=== PATIENT | male | born 1945 | race Caucasian/White ===

== ENCOUNTER 2021-06-11 13:44 | Emergency (ER) | payer MEDICARE, BC, SELFPAY ==
[2021-06-11 14:19] VITALS: BP 152/86; PULSE 76; RESP 16; TEMP 36.4; O2SAT 96; BMI 32.4
[2021-06-11 14:54] VITALS: BP 166/72; PULSE 59; RESP 18; O2SAT 95
--- NOTE | 2021-06-11 15:13 | USCV_ITS ---
Bacilio Flynn Age: 75 Gender: M : 1945 Exam Date: 06/11/2021 15:31 Ordering Phys: Dennis Romero MD Technologist: Unique Salas [place] [facility] [place]: BLE PAIN, S/P BILAT GSV ABLATION HISTORY: Lower extremity pain. PROCEDURES: Venous duplex imaging was performed in bilateral lower extremities. Serial compression, augmentation maneuvers, and spectral Doppler flow evaluation were performed. FINDINGS: Normal 2-D Doppler and augmentation and compressibility throughout the lower extremity venous structures. Additional imaging through the proximal calf veins also reveals no thrombus. Bilateral non-compressible GSV seen from Groin to Knee. Patient is s/p bilateral GSV ablation CONCLUSIONS No DVT bilateral lower extremities. Chronic bilateral superficial thrombophlebitis GSV's. Dr. Bina Downing DO (Electronically Signed) Final Date: 11 June 2021 16:23 S
--- NOTE | 2021-06-11 16:11 | W.ED.GENADLT ---
HPI - General Adult General: Chief complaint: General Medical Stated complaint: BLOOD CLOT COMPLICATIONS IN L FOOT/PAIN Time Seen by Provider: 06/11/21 14:53 History of Present Illness: HPI narrative: Patient is a 75-year-old male with a history of recent superficial vein sclerosizing procedure presented to the emergency room for evaluation of left foot swelling x1 day. Patient is concerned that he may have had a blood clot and wanted to be checked out in the emergency room. Patient denies any shortness breath, chest pain, palpitation, lightheadedness. Patient denies any leg swelling, erythema, fever/chills, drainage, or pain with walking on the feet. Patient denies any ankle pain, recent trauma or fall or, or difficulty bearing weight on the left foot. Onset:1 day ago Duration:1 day Location:home Severity:mild Review of Systems Narrative: Constitutional: No fever, no chills. HEENT: No vision changes CV: No chest pain, no palpitations PULM: no cough, no dyspnea. GI: No abdominal pain, no N/V/D. : No dysuria MSKEL: +l foot sweling SKIN: No new rashes, no lesions. NEURO: No headache, no focal weakness. HEME: No visible bruises PSYCH: Normal mood Physical Exam Narrative: EXAM NARRATIVE: Head: Atraumatic Eyes: PERRL, conjunctiva without injection ENT: Mucous membrane moist NECK: Supple, ROM intact LUNGS: LCTAB, no crackles/rhonchi CV: RRR ABDOMEN: Soft, nontender in all quadrants EXTREMITY: Normal ROM, no visible swelling of the left foot, no ankle swelling bilaterally, no Homans' sign, hyperpigmented skin to below the knee, no visible fluctuance, warmth, erythema in the lower extremities bilaterally, 2+ DP/PT pulses bilaterally, neurological exam intact in the lower extremity bilaterally SKIN: No rash or erythema NEURO: Awake and alert, no focal motor deficits PSYCH: Normal mood and affect Course Vital Signs: Vital signs: Vital Signs Temperature 97.6 F 06/11/21 14:19 Pulse Rate 59 L 06/11/21 14:54 Respiratory Rate 18 06/11/21 14:54 Blood Pressure 166/72 06/11/21 14:54 Pulse Oximetry 95 06/11/21 14:54 MDM - General Adult MDM Narrative: Medical decision making narrative: 75-year-old male presents emergency room for evaluation of left foot swelling. On exam, there is no focal signs of swelling or infection. Patient is hemodynamically stable, neurovascular exam of the lower extremities intact. Ultrasound not showing signs of DVT. Ultrasound visualization of the DP and PT pulses intact. No suspicion for acute arterial occlusion, necrotizing soft tissue infection, DVT, other infections of lower extremity. Disposition: Discharge. Patient counseled regarding diagnostic impression, treatment plan. Patient given ED strict return precautions to return for continuation, worsening, or development of new symptoms. Instructed to f/u w/ PCP regarding symptoms today. Patient verbalized understanding. Lab Data: Labs: Lab Results 06/11/21 16:00 WBC 5.5 10^3/uL 10^3/ uL (4.0-10.0) RBC 4.41 10^6/uL 10^6 /uL (4.1-5.3) Hgb 14.1 g/dL g/dL (11.7-16.6) Hct 42.6 % % (42.0-52.0) MCV 96.6 fl H fl (80-94) MCH 32.0 pg pg (28.0-34.0) MCHC 33.1 g/dL g/dL (30.0-36.0) RDW 13.0 % % (12.1-15.1) Plt Count 151 10^3/cmm 10^3 /cmm (130-400) MPV 9.7 fL fL (7.4-10.4) Neut % (Auto) 59.0 % % Lymph % (Auto) 27.0 % % [place] % (Auto) 8.0 % % Eos % (Auto) 4.7 % % Baso % (Auto) 1.1 % % Neut # (Auto) 3.23 10^3/uL 10^3 /uL (1.8-7.7) Lymph # (Auto) 1.5 10^3/uL 10^3/ uL (0.8-4.8) [place] # (Auto) 0.4 10^3/uL 10^3/ uL (0.2-0.9) Eos # (Auto) 0.3 10^3/uL 10^3/ uL (0.0-0.8) Baso # (Auto) 0.1 10^3/uL 10^3/ uL (0.0-0.1) Nucleated RBC % (a uto) 0 % % Nucleated RBCs # 0.0 /100WBC /100W BC Imaging Data^: Other Imaging: Radiologist's impression: [facility] [place], [place] [address]Racaumzszc ReportSigned Patient: Bacilio Flynn AUnit #: [id number]: 1945cct#:[id number]/Sex: 75 / MADM Date: 06/11/21Loc: ERRoom/Bed:Attending Dr: Ordering Provider/Ordering MD: Dennis Romero MD Date of Service: 06/11/21 Procedure(s): [place] [id number] Accession Number(s): [id number] Report Number: [id number] Bacilio Flynn Age: 75 Gender: M : 1945 Exam Date: 06/11/2021 15:31 Ordering Phys: Dennis Romero MD Technologist: Unique Salas [place] [facility] [place]: BLE PAIN, S/P BILAT GSV ABLATION HISTORY: Lower extremity pain. PROCEDURES: Venous duplex imaging was performed in bilateral lower extremities. Serial compression, augmentation maneuvers, and spectral Doppler flow evaluation were performed. FINDINGS: Normal 2-D Doppler and augmentation and compressibility throughout the lower extremity venous structures. Additional imaging through the proximal calf veins also reveals no thrombus. Bilateral non-compressible GSV seen from Groin to Knee. Patient is s/p bilateral GSV ablation CONCLUSIONS No DVT bilateral lower extremities. Chronic bilateral superficial thrombophlebitis GSV's. Dr. Bina Downing DO (Electronically Signed) Final Date: 11 June 2021 16:23 S Discharge Plan Discharge Patient Disposition: Home Clinical Impression: Foot swelling Condition: Stable Discharge Orders: Discharge ED (Routine); Ordered 06/11/21 Ordered By: Dennis Romero Referrals: Rona Cabral FNP [Primary Care Provider] - Discharge Diet: Advance as tolerated Discharge Activity: Resume usual activity Patient Instructions: Swollen Joint (ED) Activity Restrictions/Additional Instructions: Follow-up with your primary care provider for further evaluation of your right knee. Come back to the emergency you have new or concerning complaints. Coding Level of Care Code ED Clinical Applications Specialist for Evelin Haskins
[2021-06-11 16:14] LABS: Basophils # 0.1 10^3/uL (0.0-0.1); Basophils % 1.1 %; Eosinophils # 0.3 10^3/uL (0.0-0.8); Eosinophils % 4.7 %; Hematocrit 42.6 % (42.0-52.0); Hemoglobin 14.1 g/dL (11.7-16.6); Lymphocytes # 1.5 10^3/uL (0.8-4.8); Mean Corpuscular HGB Conc 33.1 g/dL (30.0-36.0); Mean Corpuscular Volume 96.6 fl (80-94); Mean Platelet Volume 9.7 fL (7.4-10.4); Monocytes # 0.4 10^3/uL (0.2-0.9); Neutrophils # 3.23 10^3/uL (1.8-7.7); Nucleated Red Blood Cells % 0 %; Platelet Count 151 10^3/cmm (130-400); Red Blood Count 4.41 10^6/uL (4.1-5.3); White Blood Count 5.5 10^3/uL (4.0-10.0)
[2021-06-11 16:54] LABS: Anion Gap 13.3 (5-19); Blood Urea Nitrogen 14 mg/dL (8-23); Calcium 8.4 mg/dL (8.5-10.5); Carbon Dioxide 31 mmol/L (22-29); Chloride 98 mmol/L (98-107); Glucose 99 mg/dL (65-115); Osmolality Calculated 287 mOsm/kg (285-295); Potassium 4.3 mmol/L (3.5-5.1); Sodium 138 mmol/L (136-145)
== END 2021-06-11 16:52 | disposition home or self-care (01) ==
PROVIDERS: Emergency Provider Emergency Medicine; PCP Nurse Practitioner Family
DX: M79.89 Other specified soft tissue disorders (principal)
CPT/HCPCS: 80048; 85025; 93970; 99282

== ENCOUNTER 2022-10-20 17:28 | Emergency (ER) | payer MEDICARE, BC, SELFPAY ==
[2022-10-20] VITALS (12 sets, daily range): BP systolic 155–198; BP diastolic 81–101; PULSE 64–104; RESP 13–26; TEMP 36.1; O2SAT 78–99; BMI 27.8
--- NOTE | 2022-10-20 17:36 | ECG_ITS ---
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 Measurements Intervals [place] Rate: 74 P: 0 VA: 0 QRS: -73 QRSD: 156 T: 28 QT: 452 QTc: 502 Interpretive Statements ATRIAL FLUTTER RIGHT BUNDLE BRANCH BLOCK [120+ ms QRS DURATION, UPRIGHT V1, 40+ ms S IN I/aVL/V4/V5/V6] LEFT ANTERIOR FASCICULAR BLOCK [QRS AXIS <= -45, QR IN I, RS IN II] INFERIOR MYOCARDIAL INFARCTION , OF INDETERMINATE AGE [40+ ms Q WAVE AND/OR ST/T ABNORMALITY IN II/aVF] Compared to ECG 06/23/2019 19:39:36 Left anterior fascicular block now present Sinus rhythm no longer present Myocardial infarct finding still present Electronically Signed On 10-20-2022 22:51:23 CDT by Khalif Macedo M.D. [id number]
--- NOTE | 2022-10-20 18:28 | XRR_ITS ---
PROCEDURE INFORMATION: Exam: XR Chest Exam date and time: 10/20/2022 6:40 PM Age: 77 years old Clinical indication: Other: Arrythmia TECHNIQUE: Imaging protocol: Radiologic exam of the chest. Views: 1 view. COMPARISON: CR XR chest 1V [id number] 06/23/2019 8:09 PM FINDINGS: Lungs: Scattered calcified granuloma are unchanged. No consolidation. Pleural spaces: Unremarkable. No pleural effusion. No pneumothorax. Heart/Mediastinum: Stable heart size. Bones/joints: Stable bones. XR/XR chest 1V portable [id number] IMPRESSION: No acute findings.
--- NOTE | 2022-10-20 18:28 | CTR_ITS ---
PROCEDURE INFORMATION: Exam: CT Head Without Contrast Exam date and time: 10/20/2022 6:52 PM Age: 77 years old Clinical indication: Dizziness and other: Fall; Additional info: Dizziness, fall, TECHNIQUE: Imaging protocol: Computed tomography of the head without contrast. Radiation optimization: All CT scans at this facility use at least one of these dose optimization techniques: automated exposure control; mA and/or kV adjustment per patient size (includes targeted exams where dose is matched to clinical indication); or iterative reconstruction. REPORTING DATA: Count of CT and Cardiac NM exams in prior 12 months: This patient has received 0 known CTs and 0 known cardiac nuclear medicine studies in the 12 months prior to the current study. COMPARISON: CT head wo con* [id number] 06/23/2019 8:20 PM RADIATION DOSE METRICS: Total DLP (mGy-cm): 1162.38 FINDINGS: Brain: There is a newly apparent region of hypodensity in the left anterior and inferior temporal lobe. No associated mass effect or midline shift. New hypodensity is also seen in the right basal ganglia/caudate nucleus head for example on series 4, image 17 with punctate foci of hyperdensity suspicious for petechial hemorrhage. No midline shift. Mild involutional changes of the brain are stable. New lytic changes in the right frontal calvarium for example on series 5, image 40 measuring 2.4 cm with underlying possible extra-axial density. 5 mm extra-axial hypodense right cerebral convexity collection greatest in the frontal region. Cerebral ventricles: No ventriculomegaly. Paranasal sinuses: Visualized sinuses are unremarkable. No fluid levels. Mastoid air cells: Visualized mastoid air cells are well aerated. Bones/joints: No acute fracture. Soft tissues: Unremarkable. CT/CT head wo con* [id number] IMPRESSION: 1. New region of hypodensity in the left anterior and inferior temporal lobe. Additional region of hypodensity in the right basal ganglia/caudate nucleus head which appears to have petechial hemorrhage. Differential diagnosis is regions of subacute infarction or possibly edema related to brain lesion such as metastasis. No significant mass effect is seen. No midline shift. Recommend further characterization with MRI brain with and without contrast material. 2. Additional new lytic lesion right frontal lobe possibly with associated soft tissue component favors metastasis. 3. Additional 5 mm right frontal convexity extra-axial hypodense collection is suspicious for a subacute subdural hematoma.
--- NOTE | 2022-10-20 18:30 | ED_ITS ---
HPI - Dizziness General: Chief Complaint: Dizziness Stated Complaint: Fell and head bused in the wall, dizziness Time Seen by Provider: 10/20/22 18:21 History of Present Illness: HPI Narrative: Patient presents to the ER with complaints of dizziness and falling. Patient has had multiple episodes of dizziness and falling over the past month. Patient seen his PCP recently had an EKG and they said he may be in A-fib and change his medicine around. However they did not place him on any anticoagulation. Patient has struck his head on multiple occasions during these falls. MD elicited complaint: dizziness Onset (ago): week(s) (4 to 8 weeks ago) Timing: sudden onset Severity: moderate Description: off-balance and difficulty walking History of similar symptoms: Yes Exacerbating factors: movement/ambulation Relieving factors: nothing Associated symptoms: Reports no associated symptoms; Denies chest pain, chills, headache(s), nausea, palpitations or vomiting Associated neuro symptoms: Reports no associated symptoms; Deny numbness in extremities Review of Systems General: Reports: 10 or more systems reviewed and unremarkable except in HPI and below Const: Denies: fever(s) or chills Eyes: Denies: change in vision ENMT: Denies: throat pain Card: Reports: irregular heart rhythm; Denies: chest pain or palpitations Resp: Denies: dyspnea, productive cough or non-productive cough GI: Reports: diarrhea; Denies: abdominal pain, nausea or vomiting : Denies: flank pain or difficulty urinating Musc: Denies: neck pain or back pain Skin/Breast: Denies: rash or pruritus Neuro: Denies: headache(s), numbness in extremities or weakness in extremities Psych: Denies: anxiety or depression Endo: Denies: polyuria, polydipsia or tired all the time Physical Exam Const: COMMON NORMALS: no acute distress, average body habitus, patient oriented x3, no limitations, healthy appearing, alert and well nourished HENMT: COMMON NORMALS: normocephalic, atraumatic, hearing grossly normal bilaterally, external ears normal, Normal external nose present and moist oral mucous membranes HEAD & SCALP: normocephalic and atraumatic NOSE: Normal external nose present EXTERNAL EAR: Yes external ears normal Eye: COMMON NORMALS: Equal, round and reactive pupils present, EOMs intact bilaterally, conjunctivae normal and no scleral icterus CONJUNCTIVA: Yes conjunctivae normal PUPIL: Yes Equal, round and reactive pupils present Chest: COMMONS NORMALS: normal inspection of the chest and normal palpation of entire chest wall Resp: COMMON NORMALS: normal respiratory effort, No retractions, No use of accessory muscles and clear to auscultation bilaterally AUSCULTATION: clear to auscultation bilaterally Cardio: COMMON NORMALS: regular rate RATE: regular rate RHYTHM: abnormal rhythm irregularly irregular GI: COMMON NORMALS: Normal to inspection, nondistended, normoactive bowel sounds present, Soft to palpation, non-tender, No hepatosplenomegaly present and no masses PALPATION: Yes Soft to palpation and Yes No hepatosplenomegaly present : COMMON NORMALS: Yes no CVA tenderness BLADDER/KIDNEY EXAM: Yes no CVA tenderness Back/Pelvis: COMMON NORMALS: no CVA tenderness and thoracic and lumbar spine normal to inspection Neuro: COMMON NORMALS: patient oriented x3, CN's II-XII intact bilaterally, moves all extremities, no focal motor deficits and no sensory deficits noted SENSORIUM/ORIENTATION: Yes alert Psych: COMMON NORMALS: mental status grossly normal, Normal thought process present, cooperative, normal affect and speech normal SPEECH: Yes normal speech THOUGHT PROCESS: Normal thought process present Course 2 Vital Signs: Vital signs: Vital Signs Temperature 96.9 F L 10/20/22 17:31 Pulse Rate 69 10/20/22 19:05 Respiratory Rate 17 10/20/22 19:05 Blood Pressure 180/101 10/20/22 19:05 Pulse Oximetry 98 10/20/22 18:45 Oxygen Delivery Me thod 10/20/22 17:31 MDM - Dizziness Medical Decision Making Patient presents to the ER with complaints of sudden onset dizziness and falls, multiple times in the last several months. Patient has no complaints at this time and only came in because his daughter made him come. Patient's daughter said this is happening more frequent and getting worse with the last fall possibly a couple days ago. Upon further history and physical exam as well as lab work and imaging, it was found that patient has a subacute 5 mm subdural hematoma as well as a possible petechial hemorrhage in his basal ganglia, and possible multiple lytic lesions in his frontal lobe. These findings were discussed with patient and daughter. Patient has no history of cancers other than skin cancers. Mayra Arora was called Dr. Mandi neurosurgeon recommended ER to ER transfer, Dr. Fili Adamson, ER doctor excepted patient in transfer. Differential Diagnosis Likely orthostatic hypotension; Unlikely benign paroxysmal positional vertigo, vertebral basilar insufficiency, cerebrovascular accident, acute vestibular neuronitis or transient cerebral ischemia Lab Data 10/20/22 18:35 10/20/22 18:35 Radiology Impressions Chest X-Ray 10/20/22 18:28 IMPRESSION: No acute findings. Head CT 10/20/22 18:28 IMPRESSION: 1. New region of hypodensity in the left anterior and inferior temporal lobe. Additional region of hypodensity in the right basal ganglia/caudate nucleus head which appears to have petechial hemorrhage. Differential diagnosis is regions of subacute infarction or possibly edema related to brain lesion such as metastasis. No significant mass effect is seen. No midline shift. Recommend further characterization with MRI brain with and without contrast material. 2. Additional new lytic lesion right frontal lobe possibly with associated soft tissue component favors metastasis. 3. Additional 5 mm right frontal convexity extra-axial hypodense collection is suspicious for a subacute subdural hematoma. ADDENDUM: 10/20/221925 THIS REPORT CONTAINS FINDINGS THAT MAY BE CRITICAL TO PATIENT CARE. The findings were verbally communicated via telephone conference with Evan Grimm at 7:25 PM CDT on 10/20/2022. The findings were acknowledged and understood. Laboratory Results WBC 10.6 10^3/uL (4.0-10.0) H 10/20/22 18:35 RBC 4.34 10^6/uL (4.1-5.3) 10/20/22 18:35 Hgb 11.8 g/dL (11.7-16.6) 10/20/22 18:35 Hct 37.5 % (42.0-52.0) L 10/20/22 18:35 MCV 86.4 fl (80-94) 10/20/22 18:35 MCH 27.2 pg (28.0-34.0) L 10/20/22 18:35 MCHC 31.5 g/dL (30.0-36.0) 10/20/22 18:35 RDW 13.7 % (12.1-15.1) 10/20/22 18:35 Plt Count 265 10^3/cmm (130-400) 10/20/22 18:35 MPV 9.8 fL (7.4-10.4) 10/20/22 18:35 Neut % (Auto) 79.4 % 10/20/22 18:35 Lymph % (Auto) 12.4 % 10/20/22 18:35 [place] % (Auto) 6.1 % 10/20/22 18:35 Eos % (Auto) 0.9 % 10/20/22 18:35 Baso % (Auto) 0.6 % 10/20/22 18:35 Neut # (Auto) 8.41 10^3/uL (1.8-7.7) H 10/20/22 18:35 Lymph # (Auto) 1.3 10^3/uL (0.8-4.8) 10/20/22 18:35 [place] # (Auto) 0.6 10^3/uL (0.2-0.9) 10/20/22 18:35 Eos # (Auto) 0.1 10^3/uL (0.0-0.8) 10/20/22 18:35 Baso # (Auto) 0.1 10^3/uL (0.0-0.1) 10/20/22 18:35 Nucleated RBC % (auto) 0 % 10/20/22 18:35 Nucleated RBCs # 0.0 /100WBC 10/20/22 18:35 PT 16.10 SECONDS (12.1-14.9) H 10/20/22 18:35 INR 1.25 (0.8-1.2) H 10/20/22 18:35 Sodium 131 mmol/L (136-145) L 10/20/22 18:35 Potassium 3.9 mmol/L (3.5-5.1) 10/20/22 18:35 Chloride 92 mmol/L (98-107) L 10/20/22 18:35 Carbon Dioxide 27 mmol/L (22-29) 10/20/22 18:35 Anion Gap 15.9 (5-19) 10/20/22 18:35 BUN 16 mg/dL (8-23) 10/20/22 18:35 Creatinine 1.0 mg/dL (0.7-1.2) 10/20/22 18:35 GFR Calculation Not Reportable 10/20/22 18:35 Glucose 94 mg/dL (65-115) 10/20/22 18:35 Calculated Osmolality 273 mOsm/kg (285-295) L 10/20/22 18:35 Calcium 8.7 mg/dL (8.5-10.5) 10/20/22 18:35 Total Bilirubin 0.6 mg/dL (0.15-1.2) 10/20/22 18:35 AST 37 U/L (0-40) 10/20/22 18:35 ALT 46 U/L (0-41) H 10/20/22 18:35 Alkaline Phosphatase 131 U/L (40-130) H 10/20/22 18:35 Troponin T Baseline 30 ng/L (0-15) H 10/20/22 18:35 Total Protein 7.2 g/dL (6.6-8.7) 10/20/22 18:35 Albumin 3.7 g/dL (3.5-5.2) 10/20/22 18:35 Globulin 3.5 g/dL (1.3-4.6) 10/20/22 18:35 TSH 2.16 uIU/mL (0.27-4.20) 10/20/22 18:35 Discharge Plan Discharge Patient Disposition: Transfer to ED Clinical Impression: Subdural hematoma, Closed head injury with petechial brain hemorrhage, Abnormal computed tomography of head, Multiple falls, Vertigo Condition: Stable Referrals: Misha,ZOË Rea [Primary Care Provider] - Coding Level of Care Code ED Automatic Furnace Operator for Evelin Haskins
[2022-10-20 19:02] LABS: Basophils # 0.1 10^3/uL (0.0-0.1); Basophils % 0.6 %; Eosinophils # 0.1 10^3/uL (0.0-0.8); Eosinophils % 0.9 %; Hematocrit 37.5 % (42.0-52.0); Hemoglobin 11.8 g/dL (11.7-16.6); Lymphocytes # 1.3 10^3/uL (0.8-4.8); Lymphocytes % 12.4 %; Mean Corpuscular HGB Conc 31.5 g/dL (30.0-36.0); Mean Corpuscular Hemoglobin 27.2 pg (28.0-34.0); Mean Corpuscular Volume 86.4 fl (80-94); Mean Platelet Volume 9.8 fL (7.4-10.4); Monocytes # 0.6 10^3/uL (0.2-0.9); Monocytes % 6.1 %; Neutrophils # 8.41 10^3/uL (1.8-7.7); Neutrophils % 79.4 %; Nucleated Red Blood Cells % 0 %; Platelet Count 265 10^3/cmm (130-400); Red Blood Count 4.34 10^6/uL (4.1-5.3); Red Cell Distribution Width 13.7 % (12.1-15.1); White Blood Count 10.6 10^3/uL (4.0-10.0)
[2022-10-20 19:10] LABS: INR 1.25 (0.8-1.2)
[2022-10-20 19:25] LABS: Troponin(5th) Baseline 30 ng/L (0-15)
[2022-10-20 19:31] LABS: Alanine Aminotransferase 46 U/L (0-41); Albumin Level 3.7 g/dL (3.5-5.2); Alkaline Phosphatase 131 U/L (40-130); Anion Gap 15.9 (5-19); Aspartate Amino Transferase 37 U/L (0-40); Blood Urea Nitrogen 16 mg/dL (8-23); Calcium 8.7 mg/dL (8.5-10.5); Carbon Dioxide 27 mmol/L (22-29); Chloride 92 mmol/L (98-107); Globulin 3.5 g/dL (1.3-4.6); Glucose 94 mg/dL (65-115); Osmolality Calculated 273 mOsm/kg (285-295); Potassium 3.9 mmol/L (3.5-5.1); Sodium 131 mmol/L (136-145); Thyroid Stimulating Hormone 2.16 uIU/mL (0.27-4.20); Total Bilirubin 0.6 mg/dL (0.15-1.2); Total Protein 7.2 g/dL (6.6-8.7)
[2022-10-20 20:59] LABS: Troponin 5 2HR 26.74 ng/L (0-15)
[2022-10-20 21:00] LABS: Troponin 5 2HR Delta -3.26 ABS# (0-10)
== END 2022-10-20 22:41 ==
PROVIDERS: Emergency Provider Emergency Medicine; PCP Nurse Practitioner Family
DX: S06.5XAA Traumatic subdural hemorrhage with loss of consciousness status unknown, initial encounter (principal); R23.3 Spontaneous ecchymoses; S09.8XXA Other specified injuries of head, initial encounter; R42 Dizziness and giddiness; R29.6 Repeated falls; R93.0 Abnormal findings on diagnostic imaging of skull and head, not elsewhere classified; W19.XXXA Unspecified fall, initial encounter
CPT/HCPCS: 36415; 70450; 71045; 80053; 84443; 84484; 85025; 85610; 93005; 99285

== ENCOUNTER 2022-11-11 09:46 | Oncology outpatient (recurring) (ONCR) | payer MEDICARE, BC, SELFPAY ==
--- NOTE | 2022-11-06 14:49 | N.ONRAD NP_ITS ---
Radiation Oncology Consultation Patient Name: Bacilio Flynn Date of : 1945 Date of Service: 11/06/2022 Attending Physician: Donavon Noguera M.D. Maicol Flynn was seen in consultation this morning for consideration of palliative cranial radiotherapy in the management of metastatic esophageal cancer. He was evaluated at the [facility]'s Emergency Department following a fall that resulted in loss of consciousness. A CT of the head obtained on October 20, 2022 identified a hypodensity in the left amee-inferior temporal lobe, a lytic right frontal calvarial lesion measuring 2.4 cm, and a 5 mm right frontal lobe convexity suspicious for subacute subdural hematoma. He was transferred to [facility] in [place], [place]. An MRI of the head revealed multiple metastatic lesions including a 4 mm cerebellar lesion, a 3 mm left inferior temporal lesion, a 1.1 cm posterior temporal mass, a 7.5 mm right basal ganglia lesion, a 3 mm left occipital lesion, a 1.5 mm left lateral ventricular lesion, a 2.5 left precentral gyrus lesion, a 1 mm right frontal lobe lesion, a 5 mm right convexity subdural hematoma. A thoracoabdominopelvic CT scan ordered on 2022 described esophageal mass measuring 6.3 cm x 6 cm x 4.8 cm 1.9 cm hypodense lesion in the splenic body, and a density in the left adrenal gland. An esophagogastroduodenoscopy performed on October 24, 2022 reported a subepithelial mass or possible external compression causing luminal narrowing 31 cm to 38 cm from the central incisors. A fine-needle aspiration the periesophageal mass diagnosed a poorly-differentiated adenocarcinoma. HER2 and MMR IHC were attempted but there is insufficient cellularity for interpretation. The patient was evaluated for palliative cranial radiotherapy. I reviewed The National Comprehensive Cancer Network Guidelines for extensive brain metastases and the role of hypothalamic- avoidance whole brain radiotherapy and memantine, cranial radiotherapy with or without memantine, and stereotactic radiosurgery for the management of cranial metastases. In consideration of the patient's metastatic disease burden, I anticipate a short-course of radiotherapy. I anticipate a 1-week course of treatment. The potential toxicities of cranial radiotherapy were reviewed. The patient has verbalized understanding would like to proceed as recommended. Signed by: Donavon Noguera 11/06/2022 2:48:47 PM
== END 2022-11-16 23:59 | disposition home or self-care (01) ==
PROVIDERS: PCP Family Medicine; Visit Provider Internal Medicine Medical Oncology
DX: C79.31 Secondary malignant neoplasm of brain; Z87.891 Personal history of nicotine dependence; Z79.52 Long term (current) use of systemic steroids; C15.5 Malignant neoplasm of lower third of esophagus
CPT/HCPCS: 99205

== ENCOUNTER 2022-11-25 09:27 | Outpatient (CLI) | payer MEDICARE, BC, SELFPAY ==
--- NOTE | 2022-11-25 09:38 | CT_ITS ---
WS: [id number] CT HEAD TECHNIQUE: Noncontrast CT of the head obtained from the skullbase to the vertex. CLINICAL INFORMATION: SECONDARY MALIGNANT NEOPLASM OF BRAIN COMPARISON: Outside MRI October 21, 2022 DLP: 1150.[address] scans at [facility] use at least one of these dose optimization techniques: automated e xposure control; mA and/or kV adjustment per patient size (includes targeted exams where dose is matc hed to clinical indication); or iterative reconstruction. FINDINGS: Again seen are intracranial metastasis with surrounding edema involving the LEFT anterior temporal lo be, RIGHT frontal lobe adjacent to the frontal horn, and additional smaller enhancing lesion seen on the prior MRI in the LEFT anterior cerebellum. Areas of edema are similar to previous. Metastatic les ions today measure 2.3 x 1.7 cm in the LEFT anterior temporal lobe progressed compared to the prior M RI. RIGHT frontal lesion also is progressed measuring 1.1 x 1.3 CM. Mild mass effect on the LEFT temp oral horn and RIGHT anterior frontal horn. No obstructive hydrocephalus. 4th ventricle is patent. Transcalvarial metastasis involving the RIGHT frontal scalp with large soft tissue component appears progressed. Soft tissue scalp component measures 7.1 x 1.2 x 1.4 cm AP by transverse by craniocaudal. This results in transcalvarial involvement of the RIGHT frontal calvarium with erosive changes in th e calvarium which appears progressed. Soft tissue scalp component presumably represents metastasis si gnificantly progressed compared to previous. Recommend clinical correlation. Associated involvement of the underlying dura. Associated dural thickening overlying the RIGHT fronta l lobe. Dural thickening measures approximately 5 mm. Some this may represent residual subdural hemat robel that was previously described. Moderate small vessel changes. Moderate parenchymal volume loss. Paranasal sinuses and mastoid air ce lls well aerated. CT/CT head wo con* [id number] IMPRESSION: 1. Interparenchymal metastasis as described above progressed in the LEFT tempo ral and RIGHT frontal lobes. 2. No obstructive hydrocephalus or significant midline shift. 3. Transcalvarial metastasis involving the RIGHT frontal scalp with involvemen t of the underlying calvarium and dura. Scalp soft tissue component presumably metastasis has significantly progressed. 4. Stable appearing dural thickening underlying the RIGHT frontal calvarial me tastasis with stable hematoma/dural thickening measuring 5 mm. 5. Moderate small vessel changes with moderate parenchymal volume loss. 6. Contrast not administered. Recommend follow-up MRI without and with gadolin ium for better anatomic detail.
== END 2022-11-25 09:28 | disposition home or self-care (01) ==
LOC: RAD 09:29
PROVIDERS: PCP Family Medicine; Visit Provider Neurological Surgery
DX: C79.31 Secondary malignant neoplasm of brain (principal)
CPT/HCPCS: 70450

== ENCOUNTER 2022-12-04 10:27 | Oncology outpatient (recurring) (ONCR) | payer MEDICARE, BC, SELFPAY ==
--- NOTE | 2022-11-26 | CT_ITS ---
Radiation Therapy Planning CT images; total exam DLP: 361.82 mGy-cm MTDD
--- NOTE | 2022-12-04 10:32 | N.ONRD TS_ITS ---
Radiation OncologyTreatment Summary Patient Name: Bacilio Flynn Date of : 1945 Date of Service: 12/04/2022 Attending Physician: Donavon Noguera M.D. Bacilio Flynn has completed cranial radiotherapy for the management of metastatic esophageal cancer. He was evaluated at the [facility]'s Emergency Department following a fall that resulted in loss of consciousness. A CT of the head obtained on October 20, 2022 identified a hypodensity in the left amee-inferior temporal lobe, a lytic right frontal calvarial lesion measuring 2.4 cm, and a 5 mm right frontal lobe convexity suspicious for subacute subdural hematoma. He was transferred to [facility] in [place], [place]. An MRI of the head revealed multiple metastatic lesions including a 4 mm cerebellar lesion, a 3 mm left inferior temporal lesion, a 1.1 cm posterior temporal mass, a 7.5 mm right basal ganglia lesion, a 3 mm left occipital lesion, a 1.5 mm left lateral ventricular lesion, a 2.5 left precentral gyrus lesion, a 1 mm right frontal lobe lesion, a 5 mm right convexity subdural hematoma. A thoracoabdominopelvic CT scan ordered on 2022 described esophageal mass measuring 6.3 cm x 6 cm x 4.8 cm 1.9 cm hypodense lesion in the splenic body, and a density in the left adrenal gland. An esophagogastroduodenoscopy performed on October 24, 2022 reported a subepithelial mass or possible external compression causing luminal narrowing 31 cm to 38 cm from the central incisors. A fine-needle aspiration the periesophageal mass diagnosed a poorly-differentiated adenocarcinoma. HER-2 and MMR IHC were attempted but there is insufficient cellularity for interpretation. Daily radiotherapy was administered between the dates November 27, 2022 through December 03, 2022. A prescribed dose of 20 Gy was delivered in 5 fractions encompassing 7 elapsed days. The cranial fossa was treated utilizing a 3-dimensional conformal radiotherapy plan with an opposed lateral portal field design and a half-beam treatment technique. The left lateral port employed a gantry angle of 90??? and a collimator angle of 220???. The field size measured 11 cm x11 cm within X-direction and 18 cm x 0 cm within the Y-direction. The measured SSD was 92.2 cm with the field delivering 210 monitor units. The right lateral field utilized a 270??? gantry angle with a collimator angle of 140???. The field size measured 11 cm x 11 cm within the X-direction and 18 cm x 0 cm within the Y-direction. The SSD measured 91.9 cm with the port administering 217 monitor units. All treatments were performed with the [employer] linear accelerator and an isocentric technique. The dose was calculated by Anisotropic Analytic Algorithm. Photon energies of 15 MV were prescribed with the plan normalized to deliver 100% of the prescription dose to 100% of the planning target volume. Signed by: Donavon Noguera 12/04/2022 10:31:41 AM
--- NOTE | 2022-12-04 10:47 | ONCRAD TMN_ITS ---
Radiation Oncology Treatment Management Note Patient Name: Bacilio Flynn Date of : 1945 Date of Service: 12/04/2022 Attending Physician: Donavon Noguera M.D. Bacilio Flynn has completed cranial radiotherapy for the management of metastatic esophageal cancer. He was evaluated at the [facility]'s Emergency Department following a fall that resulted in loss of consciousness. A CT of the head obtained on October 20, 2022 identified a hypodensity in the left amee-inferior temporal lobe, a lytic right frontal calvarial lesion measuring 2.4 cm, and a 5 mm right frontal lobe convexity suspicious for subacute subdural hematoma. He was transferred to [facility] in [place], [place]. An MRI of the head revealed multiple metastatic lesions including a 4 mm cerebellar lesion, a 3 mm left inferior temporal lesion, a 1.1 cm posterior temporal mass, a 7.5 mm right basal ganglia lesion, a 3 mm left occipital lesion, a 1.5 mm left lateral ventricular lesion, a 2.5 left precentral gyrus lesion, a 1 mm right frontal lobe lesion, a 5 mm right convexity subdural hematoma. A thoracoabdominopelvic CT scan ordered on 2022 described esophageal mass measuring 6.3 cm x 6 cm x 4.8 cm 1.9 cm hypodense lesion in the splenic body, and a density in the left adrenal gland. An esophagogastroduodenoscopy performed on October 24, 2022 reported a subepithelial mass or possible external compression causing luminal narrowing 31 cm to 38 cm from the central incisors. A fine-needle aspiration the periesophageal mass diagnosed a poorly-differentiated adenocarcinoma. HER-2 and MMR IHC were attempted but there is insufficient cellularity for interpretation. The patient has received 20 Gy of a prescribed 20 Gy with a 3-dimensional conformal radiotherapy plan utilizing a half-beam block treatment technique with opposed lateral portal flanagan. Upon review of systems, he denied new neurological symptoms. On physical examination, the patient weighed 192 lbs. His temperature was 97.8 ???F and the blood pressure was 101/66 mmHg. His pulse was 176 bpm and the respiratory rate was 16. Cranial nerves were intact. Cranial radiotherapy completed today. Signed by: Donavon Noguera 12/04/2022 10:46:39 AM
== END 2022-12-17 23:59 | disposition home or self-care (01) ==
PROVIDERS: PCP Family Medicine; Visit Provider Radiology Radiation Oncology
DX: Z51.0 Encounter for antineoplastic radiation therapy (principal); C15.5 Malignant neoplasm of lower third of esophagus; C79.31 Secondary malignant neoplasm of brain; Z79.899 Other long term (current) drug therapy
CPT/HCPCS: 77280; 77290; 77295; 77300; 77334; 77336; 77412; 99024

== ENCOUNTER 2022-12-22 15:21 | Observation (INO) | payer MEDICARE, BC, SELFPAY ==
[2022-12-22] VITALS (36 sets, daily range): BP systolic 67–127; BP diastolic 47–80; PULSE 114–141; RESP 15–24; TEMP 36.6–37.7; O2SAT 80–97; BMI 24.4
--- NOTE | 2022-12-22 15:23 | W.ED.GENADLT ---
HPI - General Adult General: Chief complaint: Urogenital-Male Stated complaint: unable to urinate Time Seen by Provider: 12/22/22 15:23 Source: patient Mode of arrival: ambulatory History of Present Illness: 77-year-old male presents emergency room unable to urinate. He has been agitated. He has a known history of esophageal cancer with multiple mets to the brain and other distant organs. He is tachycardic on arrival. He is very agitated he was given half milligram Ativan and 1/2 mg morphine. Hospice states they tried to place catheter but unable to do so. He was referred to the emergency room. He did receive palliative radiation therapy per oncology notes. Review of Systems General: Reports: ROS unobtainable due to medical condition and ROS unobtainable due to mental status PFS ED PFSH: Medical History Anxiety and depression Benign prostatic hyperplasia History of carotid stenosis Hyperlipidemia Hypertension Malignant neoplasm of lower third of esophagus Peripheral neuropathy Secondary malignant neoplasm of brain Surgical History History of appendectomy History of carpal tunnel surgery of left wrist History of endoscopy (10/24/22) EGD with endoscopic ultrasound and FNA biopsy of esophageal mass History of surgery on lower extremity Vascular surgery S/P coronary artery stent placement Family History Mother Dementia Brother Cancer Other CAD (coronary artery disease) Hyperlipidemia Hypertension Denies family history of Diabetes Clotting disorder Psychiatric illness Chronic kidney disease (CKD) Suicide Anesthesia complication Bleeding disorder Lung disease Stroke Social History Smoking and tobacco status: former smoker Quit status (tobacco): has quit using tobacco Former quit date comment: Smoked x 50+, then vaped off and on Alcohol intake: current Alcohol intake frequency: 3 or more drinks per day Physical Exam HENMT: COMMON NORMALS: normocephalic, atraumatic and hearing grossly normal bilaterally HEAD & SCALP: normocephalic and atraumatic Resp: COMMON NORMALS: normal respiratory effort, No retractions, No use of accessory muscles and clear to auscultation bilaterally AUSCULTATION: clear to auscultation bilaterally Cardio: COMMON NORMALS: regular rate, regular rhythm and No murmurs present (Cardio) RATE: regular rate RHYTHM: regular rhythm GI: COMMON NORMALS: No hepatosplenomegaly present AUSCULTATION: Yes normoactive bowel sounds PALPATION: Yes Tenderness to palpation present (GI) (Suprapubic fullness, resolved after placement of Earl), No Guarding due to palpation present (GI) and Yes No hepatosplenomegaly present Extremity: COMMON NORMALS: normal to inspection, capillary refill normal, no clubbing, cyanosis or edema, no calf tenderness and no pedal edema Skin: COMMON NORMALS: no rashes or lesions noted GENERAL SKIN EXAM: no rashes or lesions noted Course Vital Signs: Vital signs: Vital Signs Temperature 98.5 F 12/23/22 08:00 Pulse Rate 118 H 12/23/22 10:08 Respiratory Rate 20 H 12/23/22 10:08 Blood Pressure 82/43 12/23/22 08:00 Pulse Oximetry 82 L 12/23/22 08:00 Oxygen Delivery Me thod Nasal Cannula 12/23/22 10:08 Oxygen Flow Rate 2 12/23/22 10:08 MDM - General Adult Medical Decision Making Patient extremely agitated on arrival given morphine and Ativan to relieve his anxiety and sedate him. We are able to get the Earl placed he drained out 1500 mL. Family is unable to manage him at home hospice is working on respite placement in residential. They report that he is rapidly declined in the last several days. We will leave Earl in place, outpatient in bed discussed Dr. Rubio continue medications as needed for comfort. He did have hypotension after the Ativan and morphine. Discussed with the family at this point we will not intervene and did improve after some time. Given he is on hospice they are more concerned with just comfort cares at this point. Have discussed with his hospice service they are aware that he is being placed outpatient in bed this evening. Medical Records I reviewed the patient's medical records. Lab Data I reviewed the patient's lab results. 12/22/22 16:20 12/22/22 16:20 Laboratory Results WBC 19.8 10^3/uL (4.0-10.0) H 12/22/22 16:20 RBC 4.68 10^6/uL (4.1-5.3) 12/22/22 16:20 Hgb 12.8 g/dL (11.7-16.6) 12/22/22 16:20 Hct 39.6 % (42.0-52.0) L 12/22/22 16:20 MCV 84.6 fl (80-94) 12/22/22 16:20 MCH 27.4 pg (28.0-34.0) L 12/22/22 16:20 MCHC 32.3 g/dL (30.0-36.0) 12/22/22 16:20 RDW 20.9 % (12.1-15.1) H 12/22/22 16:20 Plt Count 112 10^3/cmm (130-400) L 12/22/22 16:20 MPV 9.2 fL (7.4-10.4) 12/22/22 16:20 Neut % (Auto) 85.9 % 12/22/22 16:20 Lymph % (Auto) 8.0 % 12/22/22 16:20 Refugio % (Auto) 3.3 % 12/22/22 16:20 Eos % (Auto) 0.4 % 12/22/22 16:20 Baso % (Auto) 0.2 % 12/22/22 16:20 Neut # (Auto) 17.04 10^3/uL (1.8-7.7) H 12/22/22 16:20 Lymph # (Auto) 1.6 10^3/uL (0.8-4.8) 12/22/22 16:20 Refugio # (Auto) 0.7 10^3/uL (0.2-0.9) 12/22/22 16:20 Eos # (Auto) 0.1 10^3/uL (0.0-0.8) 12/22/22 16:20 Baso # (Auto) 0.0 10^3/uL (0.0-0.1) 12/22/22 16:20 Nucleated RBC % (auto) 0 % 12/22/22 16:20 Nucleated RBCs # 0.0 /100WBC 12/22/22 16:20 Sodium 134 mmol/L (136-145) L 12/22/22 16:20 Potassium 4.3 mmol/L (3.5-5.1) 12/22/22 16:20 Chloride 94 mmol/L (98-107) L 12/22/22 16:20 Carbon Dioxide 30 mmol/L (22-29) H 12/22/22 16:20 Anion Gap 14.3 (5-19) 12/22/22 16:20 BUN 18 mg/dL (8-23) 12/22/22 16:20 Creatinine 0.7 mg/dL (0.7-1.2) 12/22/22 16:20 GFR Calculation Not Reportable 12/22/22 16:20 Glucose 80 mg/dL (65-115) 12/22/22 16:20 Calculated Osmolality 279 mOsm/kg (285-295) L 12/22/22 16:20 Calcium 8.4 mg/dL (8.5-10.5) L 12/22/22 16:20 Total Bilirubin 0.9 mg/dL (0.15-1.2) 12/22/22 16:20 AST 13 U/L (0-40) 12/22/22 16:20 ALT 30 U/L (0-41) 12/22/22 16:20 Alkaline Phosphatase 135 U/L (40-130) H 12/22/22 16:20 Total Protein 5.5 g/dL (6.6-8.7) L 12/22/22 16:20 Albumin 2.8 g/dL (3.5-5.2) L 12/22/22 16:20 Globulin 2.7 g/dL (1.3-4.6) 12/22/22 16:20 Urine Color Yellow (Yellow) 12/22/22 16:17 Urine Appearance Clear (CLEAR) 12/22/22 16:17 Urine pH 6.5 (5-7) 12/22/22 16:17 Ur Specific Mcintosh 1.010 (1.005-1.030) 12/22/22 16:17 Urine Protein Neg (Negative) 12/22/22 16:17 Urine Glucose (UA) Norm (Normal) 12/22/22 16:17 Urine Ketones Negative (Negative) 12/22/22 16:17 Urine Blood Neg (Negative) 12/22/22 16:17 Urine Nitrate Negative (Negative) 12/22/22 16:17 Urine Bilirubin Neg (Negative) 12/22/22 16:17 Urine Urobilinogen Norm mg/dL (Negative) 12/22/22 16:17 Ur Leukocyte Esterase Negative (Negative) 12/22/22 16:17 Discharge Plan Discharge Patient Disposition: Admitted As Inpatient Admit Provider: Alexander Rubio Clinical Impression: Malignant neoplasm of lower third of esophagus, Secondary malignant neoplasm of brain, Urinary retention Condition: Stable Coding Level of Care Code ED Senior Quality Manager for Evelin Haskins
[2022-12-22] MEDS: LORazepam 2 mg/mL INJ 1 mL IVP (15:46)
[2022-12-22] MEDS: promethazine 25 mg/mL SDV 1 mL IM (15:46)
[2022-12-22] MEDS: morphine 4 mg/mL SDV 1 mL IVP (15:46)
--- NOTE | 2022-12-22 16:21 | PC.NURSE ---
Addendum entered by KANNAN Epperson 12/22/22 17:33: this tech informed nurse of catheter insertion and catheter clamp @1620 Original Note: this tech inserted an 18 FR coude catheter, approximately 1220 ml urine return, this tech clamped the urinary catheter @1617 per verbal instruction from Dr Justice
[2022-12-22 16:34] LABS: Add Urine Microscopic? NO; Charge for UA Resulting for Rev
[2022-12-22 16:36] LABS: Basophils % 0.2 %; Eosinophils # 0.1 10^3/uL (0.0-0.8); Eosinophils % 0.4 %; Hematocrit 39.6 % (42.0-52.0); Hemoglobin 12.8 g/dL (11.7-16.6); Lymphocytes # 1.6 10^3/uL (0.8-4.8); Mean Corpuscular HGB Conc 32.3 g/dL (30.0-36.0); Mean Corpuscular Hemoglobin 27.4 pg (28.0-34.0); Mean Corpuscular Volume 84.6 fl (80-94); Mean Platelet Volume 9.2 fL (7.4-10.4); Monocytes # 0.7 10^3/uL (0.2-0.9); Monocytes % 3.3 %; Neutrophils # 17.04 10^3/uL (1.8-7.7); Neutrophils % 85.9 %; Nucleated Red Blood Cells % 0 %; Platelet Count 112 10^3/cmm (130-400); Red Blood Count 4.68 10^6/uL (4.1-5.3); Red Cell Distribution Width 20.9 % (12.1-15.1); White Blood Count 19.8 10^3/uL (4.0-10.0)
[2022-12-22 16:59] LABS: Urine Appearance Clear (CLEAR); Urine Color Yellow (Yellow)
[2022-12-22 17:00] LABS: Bilirubin Urine Neg (Negative); Blood Urine Neg (Negative); Glucose Urine UA Norm (Normal); Ketones Urine Negative (Negative); Leukocyte Esterase Urine Negative (Negative); Nitrate Urine Negative (Negative); Protein Urine Neg (Negative); Urobilinogen Urine Norm (Negative); pH Urine 6.5 (5-7)
[2022-12-22 17:15] LABS: Alanine Aminotransferase 30 U/L (0-41); Albumin Level 2.8 g/dL (3.5-5.2); Alkaline Phosphatase 135 U/L (40-130); Anion Gap 14.3 (5-19); Aspartate Amino Transferase 13 U/L (0-40); Blood Urea Nitrogen 18 mg/dL (8-23); Calcium 8.4 mg/dL (8.5-10.5); Carbon Dioxide 30 mmol/L (22-29); Chloride 94 mmol/L (98-107); Creatinine Clr Calc Pharmacy 85.2702; Globulin 2.7 g/dL (1.3-4.6); Glucose 80 mg/dL (65-115); Osmolality Calculated 279 mOsm/kg (285-295); Potassium 4.3 mmol/L (3.5-5.1); Sodium 134 mmol/L (136-145); Total Bilirubin 0.9 mg/dL (0.15-1.2); Total Protein 5.5 g/dL (6.6-8.7)
--- NOTE | 2022-12-22 19:06 | PC.NURSE ---
PT FAMILY REFUSED TO TAKE PT HOME DUE TO BEING PHYSICALLY UNSTABLE AND THEM NOT HAVING THE FACILITIES TO TAKE CARE OF HIM. PT FAMILY IS CURRENTLY WORKING WITH [facility]OS[facility] TO SETUP RESPITE/HOSPICE CARE. I DISCUSSED THE SITUATION WITH DR CASEY AND KYLIE STAFF ENGINEER/NIGHT NURSE AND PT IS BEING ADMITTED OVERNIGHT TO RECEIVE RESPITE/HOSPICE CARE UNTIL THE COMPANY/CASE MANAGEMENT CAN SET UP PROPER CARE PER COMPASSYINA NURSE.
--- NOTE | 2022-12-22 20:43 | PM.HP ---
Providers/Chief Complaint Admitting Physician: Alexander Rubio Primary Care Provider: Bert Jones MD Chief Complaint: unable to urinate History of Present Illness 77-year-old gentleman with widely metastatic, including intracranial mets esophageal cancer, on hospice care, was brought in for evaluation due to urinary retention, Earl catheter was placed in ER. He has been living with his and daughter at home with hospice following, however, has become increasingly more difficult for them to manage. In ER he was very agitated, received Ativan and morphine. Currently he is resting. His other daughter is with him. Review of Systems General: Reports: ROS unobtainable due to medical condition and ROS unobtainable due to mental status Medications/Allergies Home Medications Medication Instructions Recorded Confirmed Last Taken Type amlodipine 5 mg tablet 5 mg PO DAILY 11/11/22 11/11/22 Unknown History atenolol 50 mg tablet 50 mg PO DAILY 11/11/22 11/11/22 Unknown History atorvastatin 40 mg tablet 40 mg PO DAILY 11/11/22 11/11/22 Unknown History bupropion HCl 100 mg tablet 100 mg PO BID 11/11/22 11/11/22 Unknown History dexamethasone 4 mg tablet 4 mg PO BID #60 tabs 11/11/22 11/11/22 Unknown Rx lisinopril 20 mg tablet See Rx Instructions PO DAILY 11/11/22 11/11/22 Unknown History tamsulosin 0.4 mg capsule 0.4 mg PO DAILY 11/11/22 11/11/22 Unknown History Allergies Allergy/AdvReac Type Severity Reaction Status Date / Time Penicillins Allergy ALGY-Hives Verified 11/11/22 10:00 PFSH Acute PFSH: Medical History Anxiety and depression Benign prostatic hyperplasia History of carotid stenosis Hyperlipidemia Hypertension Malignant neoplasm of lower third of esophagus Peripheral neuropathy Secondary malignant neoplasm of brain Surgical History History of appendectomy History of carpal tunnel surgery of left wrist History of endoscopy (10/24/22) EGD with endoscopic ultrasound and FNA biopsy of esophageal mass History of surgery on lower extremity Vascular surgery S/P coronary artery stent placement Family History Mother Dementia Brother Cancer Other CAD (coronary artery disease) Hyperlipidemia Hypertension Denies family history of Diabetes Clotting disorder Psychiatric illness Chronic kidney disease (CKD) Suicide Anesthesia complication Bleeding disorder Lung disease Stroke Social History Smoking and tobacco status: former smoker Quit status (tobacco): has quit using tobacco Former quit date comment: Smoked x 50+, then vaped off and on Alcohol intake: current Alcohol intake frequency: 3 or more drinks per day Vitals/I&O/Wt Last Vital Signs Temp 98.4 F 12/22/22 15:23 Pulse 123 H 12/22/22 18:35 Resp 18 12/22/22 18:35 BP 100/63 12/22/22 18:35 Pulse Ox 80 L 12/22/22 18:00 O2 Del Method Nasal Cannula 12/22/22 18:30 O2 Flow Rate 2 12/22/22 18:30 Weight last 48 hrs Weight 81.647 kg Physical Exam Const: GENERAL APPEARANCE: not cooperative ORIENTATION/CONSCIOUSNESS: not awake HENMT: COMMON NORMALS: oropharynx normal Neck/C-Spine: COMMON NORMALS: no JVD Resp: COMMON NORMALS: normal respiratory effort and clear to auscultation bilaterally AUSCULTATION: clear to auscultation bilaterally Cardio: COMMON NORMALS: no JVD, regular rhythm, S1 normal heart sound present, S2 normal heart sound present and No murmurs present (Cardio) RHYTHM: regular rhythm HEART SOUNDS: S1 normal heart sound present and S2 normal heart sound present GI: COMMON NORMALS: Normal to inspection, nondistended, normoactive bowel sounds present, Soft to palpation and non-tender PALPATION: Yes Soft to palpation Extremity: COMMON NORMALS: no joint enlargement and no pedal edema Neuro: COMMON NORMALS: negative for patient oriented x3 SENSORIUM/ORIENTATION: No alert Urinary Catheter Management: Coude Latex: Cath Placed During This Visit: yes Reason for Continuing Indwelling Catheter: Hospice/Comfort/Palliative Care Urinary Catheter Date of Insertion: 12/22/22 Urinary Catheter Time of Insertion: 16:20 Data 12/22/22 16:20 12/22/22 16:20 A&P Assessment and plan (1) Urinary retention: Earl catheter placed in ER. UA appreciated, no suggestion of UTI. Discussed with his daughter. Maintain Earl. With agitation at risk of pulling it out. One-to-one sitter for now. (2) Agitation: Acute encephalopathy in ER, with urinary tension, no sign of UTI. Does have metastatic disease including to the brain, more than likely also contributing. Possibly additional undiagnosed condition. Currently he is resting after receiving Ativan and morphine in ER. Continue comfort medications. One-to-one sitter. Discussed with daughter in case severe agitation needing antipsychotic, would be okay with that. Noted leukocytosis 19.8. Sodium 134. Renal function WNL. Liver parameters WNL apart from minimal alk phos elevation. Tachycardia 123. Noted saturation 80s on 2 L nasal cannula. Blood pressure very soft. Comfort measures only as per discussion with daughter. (3) Secondary malignant neoplasm of brain: (4) Malignant neoplasm of lower third of esophagus: Metastatic esophageal cancer including to the brain, on hospice care at home, however, as per discussion with his daughter his and other daughter have been having trouble continuing managing him there. Arrangements have been underway for him for placement to [facility] by the hospice company. We will obtain case management consultation to continue these efforts. Plan Discussed with ER physician. Documentation reviewed. Attestations Medical Necessity Statement*: Place in observation for assessment management of agitation, urine retention, and a gentleman with underlying metastatic esophageal including HIDE PULLER mets. Discharge planning and arrangements. Diagnoses Urinary retention R33.9 Agitation R45.1 Secondary malignant neoplasm of brain C79.31 Malignant neoplasm of lower third of esophagus C15.5
[2022-12-23] VITALS (7 sets, daily range): BP systolic 63–100; BP diastolic 37–60; PULSE 64–126; RESP 16–22; TEMP 36.3–36.9; O2SAT 80–92
--- NOTE | 2022-12-23 10:45 | PC.CHAP ---
Pastoral Care Encounter/Spiritual Assessment Type of Contact [] Declined senior clinical research scientist visit [] Patient/Family/Request visit [] Outpatient visit [] Follow-up visit [] Physician referral [] Code/Alert [x] Routine visit [] Staff referral [] Actively dying [] Patient sleeping [x] Family support [] [] Out of room [] Palliative care [] [] Receiving care in room [] Pre-surgical visit [] Trauma [] Long length of stay [] ICU visit [] Other: Relational/Emotional Strength [x] Patient feels connected with others/family/visitors/staff [] Distress [] Loneliness/isolation [] Abandonment Spirituality of Patient [x] Person of Malia [] Attends Cheondoism of their Malia [x] Believes in Prayer [] Reads Bible or Orthodox materials [] There are Spiritual issues to be addressed Employment Specialist/Program Manager Interventions [x] Prayer [] Active listening [] Non-anxious presence [] Spiritual/emotional support [] Crisis/trauma care [] Spiritual counseling [] Bereavement support [] Provided bereavement packet [] Provided Bible/devotional materials [] Provided toy/stuffed animal, coloring book to patient or family member [] Provided Communion [] Anointing/[place] [] Salvation [x] Completed spiritual assessment [] Other: Impact on Illness or Injury [] Angry [] Fearful [] Anxious [] Often cries [] Exhaustion [] Unable to work [] Unable to attend anglican [] Unable to walk/stand [] Unable to read [] Unable to drive [] Unable to eat/drink [] Unable to sleep [] Unable to be with family [] Patient intubated [] Other: Summary Time spent with patient 10 min
--- NOTE | 2022-12-23 16:27 | PM.PN ---
Subjective Subjective: No further agitation overnight. Having some respiratory secretions this morning. Vitals/I&O/Wt Last Vital Signs Temp 97.4 F L 12/23/22 12:00 Pulse 126 H 12/23/22 12:00 Resp 20 H 12/23/22 12:00 BP 63/37 12/23/22 12:00 Pulse Ox 82 L 12/23/22 12:00 O2 Del Method Nasal Cannula 12/23/22 12:00 O2 Flow Rate 2 12/23/22 10:08 12/23/22 12/23/22 12/23/22 06:59 14:59 22:59 Output Total 450 / 450 Balance -450 / -450 Weight last 48 hrs Weight 81.647 kg Physical Exam Narrative: and daughter at bedside. Const: COMMON NORMALS: negative for patient oriented x3 and negative for alert GENERAL APPEARANCE: not cooperative ORIENTATION/CONSCIOUSNESS: not awake OTHER: Appears comfortable. HENMT: COMMON NORMALS: oropharynx normal Neck/C-Spine: COMMON NORMALS: no JVD Resp: COMMON NORMALS: normal respiratory effort and clear to auscultation bilaterally AUSCULTATION: clear to auscultation bilaterally Cardio: COMMON NORMALS: no JVD, regular rhythm, S1 normal heart sound present, S2 normal heart sound present and No murmurs present (Cardio) RHYTHM: regular rhythm HEART SOUNDS: S1 normal heart sound present and S2 normal heart sound present GI: COMMON NORMALS: Normal to inspection, nondistended, normoactive bowel sounds present, Soft to palpation and non-tender PALPATION: Yes Soft to palpation Extremity: COMMON NORMALS: no joint enlargement and no pedal edema Neuro: COMMON NORMALS: negative for patient oriented x3 SENSORIUM/ORIENTATION: No alert Urinary Catheter Management: Coude Latex: Cath Placed During This Visit: yes Reason for Continuing Indwelling Catheter: Hospice/Comfort/Palliative Care Urinary Catheter Date of Insertion: 12/22/22 Urinary Catheter Time of Insertion: 16:20 Data 12/22/22 16:20 12/22/22 16:20 A&P Assessment and plan (1) Malignant neoplasm of lower third of esophagus: Continue comfort measures. Arrangements underway for him to transition to comfort care at [facility]. Discussed with case management. And respiratory secretions today. Added atropine. 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 Arrangements have been underway for him for placement to [facility] by the hospice company. We will obtain case management consultation to continue these efforts. (2) Agitation: Had no recurrence of agitation ever since Earl was placed. One-to-one sitter not needed. Continue comfort measures. Acute encephalopathy in ER, with urinary tension, no sign of UTI. Does have metastatic disease including to the brain, more than likely also contributing. Possibly additional undiagnosed condition. Currently he is resting after receiving Ativan and morphine in ER. Continue comfort medications. One-to-one sitter. Discussed with daughter in case severe agitation needing antipsychotic, would be okay with that. Noted leukocytosis 19.8. Sodium 134. Renal function WNL. Liver parameters WNL apart from minimal alk phos elevation. Tachycardia 123. Noted saturation 80s on 2 L nasal cannula. Blood pressure very soft. Comfort measures only as per discussion with daughter. (3) Urinary retention: Eral catheter placed in ER. UA appreciated, no suggestion of UTI. Discussed with his daughter. Maintain Earl. With agitation at risk of pulling it out. One-to-one sitter for now. (4) Secondary malignant neoplasm of brain: Plan Discussed with ER physician. Documentation reviewed. Attestations Medical Necessity Statement*: Continue admission for assessment of agitation and gentleman with metastatic esophageal cancer, comfort measures, arrangement for continued care at [facility]. Diagnoses Malignant neoplasm of lower third of esophagus C15.5 Agitation R45.1 Urinary retention R33.9 Secondary malignant neoplasm of brain C79.31
[2022-12-23] MEDS: morphine 4 mg/mL SDV 1 mL IVP ×2 (19:02→22:55)
[2022-12-24] VITALS (8 sets, daily range): BP systolic 90–112; BP diastolic 55–65; PULSE 64–123; RESP 14–24; TEMP 36.4–36.5; O2SAT 67–92
[2022-12-24] MEDS: morphine 4 mg/mL SDV 1 mL IVP ×2 (03:06→07:48)
[2022-12-24] MEDS: albuterol 2.5 mg/3 mL Neb INHALATION ×3 (03:34→15:27)
[2022-12-24] MEDS: LORazepam 2 mg/mL INJ 1 mL IVP ×2 (05:04→10:57)
[2022-12-24] MEDS: morphine 10 mg/0.5 mL oral liq UD SUBLINGUAL ×4 (09:56→17:14)
[2022-12-24] MEDS: LORazepam 2 mg/mL oral liquid (mL) 1 MG PO ×2 (15:19→17:14)
--- NOTE | 2022-12-24 17:02 | PM.DCS ---
Discharge Providers Date of Admission: 12/22/22 17:58 Date of Discharge: December 24, 2022 Attending Provider at Admission: Alexander Rubio Attending Provider at Discharge: Alexander Rubio Primary Care Provider: Bert Jones MD Diagnoses at Discharge Discharge Diagnosis (1) Malignant neoplasm of lower third of esophagus: Status: Acute (2) Agitation: Status: Acute (3) Urinary retention: Status: Acute (4) Secondary malignant neoplasm of brain: Status: Acute Reason for Visit Reason for Visit: unable to urinate Brief History: 77-year-old gentleman with widely metastatic, including intracranial mets esophageal cancer, on hospice care, was brought in for evaluation due to urinary retention, Earl catheter was placed in ER.? He has been living with his and daughter at home with hospice following, however, has become increasingly more difficult for them to manage.? In ER he was very agitated, received Ativan and morphine.? Currently he is resting.? His other daughter is with him. Hospital Course Hospital Course After placement of Earl catheter in the ER, had no further episodes of agitation. Not require one-to-one sitter. Continued with comfort care measures. Atropine was added due to respiratory secretions. Arrangements made for him to continue comfort measures over at [facility] with continued rounding, hospice follow-up, comfort measures and family will be able to be by his side there as well. Physical Exam Narrative: and daughter at bedside. Const: COMMON NORMALS: negative for patient oriented x3 and negative for alert GENERAL APPEARANCE: not cooperative ORIENTATION/CONSCIOUSNESS: not awake OTHER: Appears comfortable. HENMT: COMMON NORMALS: oropharynx normal Neck/C-Spine: COMMON NORMALS: no JVD Resp: COMMON NORMALS: normal respiratory effort AUSCULTATION: rhonchi Cardio: COMMON NORMALS: no JVD, regular rhythm, S1 normal heart sound present, S2 normal heart sound present and No murmurs present (Cardio) RHYTHM: regular rhythm HEART SOUNDS: S1 normal heart sound present and S2 normal heart sound present GI: COMMON NORMALS: Normal to inspection, nondistended, normoactive bowel sounds present, Soft to palpation and non-tender PALPATION: Yes Soft to palpation Extremity: COMMON NORMALS: no joint enlargement and no pedal edema Neuro: COMMON NORMALS: negative for patient oriented x3 SENSORIUM/ORIENTATION: No alert Urinary Catheter Management: Coude Latex: Cath Placed During This Visit: yes Reason for Continuing Indwelling Catheter: Acute Urinary Retention or Obstruction Urinary Catheter Date of Insertion: 12/22/22 Urinary Catheter Time of Insertion: 16:20 Discharge Data Studies Completed and Pending Laboratory Results WBC 19.8 10^3/uL (4.0-10.0) H 12/22/22 16:20 RBC 4.68 10^6/uL (4.1-5.3) 12/22/22 16:20 Hgb 12.8 g/dL (11.7-16.6) 12/22/22 16:20 Hct 39.6 % (42.0-52.0) L 12/22/22 16:20 MCV 84.6 fl (80-94) 12/22/22 16:20 MCH 27.4 pg (28.0-34.0) L 12/22/22 16:20 MCHC 32.3 g/dL (30.0-36.0) 12/22/22 16:20 RDW 20.9 % (12.1-15.1) H 12/22/22 16:20 Plt Count 112 10^3/cmm (130-400) L 12/22/22 16:20 MPV 9.2 fL (7.4-10.4) 12/22/22 16:20 Neut % (Auto) 85.9 % 12/22/22 16:20 Lymph % (Auto) 8.0 % 12/22/22 16:20 [place] % (Auto) 3.3 % 12/22/22 16:20 Eos % (Auto) 0.4 % 12/22/22 16:20 Baso % (Auto) 0.2 % 12/22/22 16:20 Neut # (Auto) 17.04 10^3/uL (1.8-7.7) H 12/22/22 16:20 Lymph # (Auto) 1.6 10^3/uL (0.8-4.8) 12/22/22 16:20 [place] # (Auto) 0.7 10^3/uL (0.2-0.9) 12/22/22 16:20 Eos # (Auto) 0.1 10^3/uL (0.0-0.8) 12/22/22 16:20 Baso # (Auto) 0.0 10^3/uL (0.0-0.1) 12/22/22 16:20 Nucleated RBC % (auto) 0 % 12/22/22 16:20 Nucleated RBCs # 0.0 /100WBC 12/22/22 16:20 Sodium 134 mmol/L (136-145) L 12/22/22 16:20 Potassium 4.3 mmol/L (3.5-5.1) 12/22/22 16:20 Chloride 94 mmol/L (98-107) L 12/22/22 16:20 Carbon Dioxide 30 mmol/L (22-29) H 12/22/22 16:20 Anion Gap 14.3 (5-19) 12/22/22 16:20 BUN 18 mg/dL (8-23) 12/22/22 16:20 Creatinine 0.7 mg/dL (0.7-1.2) 12/22/22 16:20 GFR Calculation Not Reportable 12/22/22 16:20 Glucose 80 mg/dL (65-115) 12/22/22 16:20 Calculated Osmolality 279 mOsm/kg (285-295) L 12/22/22 16:20 Calcium 8.4 mg/dL (8.5-10.5) L 12/22/22 16:20 Total Bilirubin 0.9 mg/dL (0.15-1.2) 12/22/22 16:20 AST 13 U/L (0-40) 12/22/22 16:20 ALT 30 U/L (0-41) 12/22/22 16:20 Alkaline Phosphatase 135 U/L (40-130) H 12/22/22 16:20 Total Protein 5.5 g/dL (6.6-8.7) L 12/22/22 16:20 Albumin 2.8 g/dL (3.5-5.2) L 12/22/22 16:20 Globulin 2.7 g/dL (1.3-4.6) 12/22/22 16:20 Urine Color Yellow (Yellow) 12/22/22 16:17 Urine Appearance Clear (CLEAR) 12/22/22 16:17 Urine pH 6.5 (5-7) 12/22/22 16:17 Ur Specific [place] 1.010 (1.005-1.030) 12/22/22 16:17 Urine Protein Neg (Negative) 12/22/22 16:17 Urine Glucose (UA) Norm (Normal) 12/22/22 16:17 Urine Ketones Negative (Negative) 12/22/22 16:17 Urine Blood Neg (Negative) 12/22/22 16:17 Urine Nitrate Negative (Negative) 12/22/22 16:17 Urine Bilirubin Neg (Negative) 12/22/22 16:17 Urine Urobilinogen Norm mg/dL (Negative) 12/22/22 16:17 Ur Leukocyte Esterase Negative (Negative) 12/22/22 16:17 Vitals Last Vital Signs Temp 97.7 F 12/24/22 11:57 Pulse 106 H 12/24/22 15:30 Resp 23 H 12/24/22 15:30 BP 112/65 12/24/22 11:57 Pulse Ox 79 L 12/24/22 11:57 O2 Del Method Room Air 12/24/22 15:30 O2 Flow Rate 2 12/24/22 08:00 Discharge Plan Discharge Patient Disposition: Hospice - Medical Facility Condition: Serious Prescriptions: New lorazepam [Lorazepam Intensol] 2 mg/mL Concentrate 1 mg PO Q2H PRN (Reason: Anxiety) Qty: 30 0RF morphine concentrate 10 mg/0.5 mL Syringe 6 mg sublingual Q2H PRN (Reason: Moderate To Severe Pain or SOB) Qty: 21 0RF atropine [Isopto Atropine] 1 % Drops 2 drp sublingual Q2H PRN (Reason: Secretions) Qty: 15 0RF Continued tamsulosin 0.4 mg capsule 0.4 mg PO DAILY dexamethasone 4 mg tablet 4 mg PO BID Qty: 60 2RF Senna-S 8.6-50 mg Tablet 1 tab-cap PO BID PRN (Reason: Constipation) Senna-S 8.6-50 mg Tablet 1 tab-cap PO BID Acetaminophen Extra Strength 500 mg Tablet 1,000 mg PO Q6H PRN (Reason: Pain) Dulcolax (bisacodyl) 5 mg Tablet,Delayed Release (Dr/Ec) 5 mg PO BEDTIME PRN (Reason: Constipation) Miralax 17 gram/dose Powder 17 g PO DAILY atropine 1 % Drops 4 drp ophthalmic (eye) Q4H PRN (Reason: Secretions) Flonase 50 mcg/actuation [place],Suspension 1 spray INTRANASAL DAILY Rx Instructions: administer into each nostril Discontinued atenolol 50 mg tablet 50 mg PO DAILY amlodipine 5 mg tablet 5 mg PO DAILY atorvastatin 40 mg tablet 40 mg PO DAILY bupropion HCl 150 mg Tablet Sustained-Release 12 Hr 150 mg PO BID Xanax 1 mg Tablet 1 mg PO Q4H PRN (Reason: Anxiety) tramadol 50 mg Tablet 50 mg PO Q6H PRN (Reason: Pain) tramadol 50 mg Tablet 100 mg PO Q6H PRN (Reason: Pain) morphine 100 mg/5 mL Concentrate 20 mg PO Q1H PRN (Reason: Pain) morphine 100 mg/5 mL Concentrate 10 mg PO Q1H PRN (Reason: Pain) lisinopril 40 mg Tablet 40 mg PO DAILY lorazepam 2 mg/mL Concentrate 1 mg PO Q2H PRN (Reason: Anxiety) lorazepam 2 mg/mL Concentrate 2 mg PO Q2H PRN (Reason: Anxiety) Discharge Orders: Discharge Order (Routine); Ordered 12/24/22 Ordered By: Alexander Rubio Referrals: Joi [Other] Bert Jones MD [Primary Care Provider] - Patient Instructions: Comfort Measures (GEN) Activity Restrictions/Additional Instructions: Earl catheter placed due to urinary retention. Protect Earl from him pulling it out. Discharge Attestations Time Spent in Discharge Care*: greater than 30 min Quality Metrics Clinical Quality Measures [ No reported AMI, CVA or VTE this stay] Coding Level of Care Code 32387 Total time (in minutes) for Discharge: 35 Diagnoses Malignant neoplasm of lower third of esophagus C15.5 Agitation R45.1 Urinary retention R33.9 Secondary malignant neoplasm of brain C79.31
== END 2022-12-24 17:55 | disposition hospice, inpatient (51) ==
LOC: ER 16:09 → ER IP 18:43 → MEDSURG 20:20
PROVIDERS: Admitting Provider Internal Medicine; Emergency Provider Family Medicine; PCP Family Medicine; Visit Provider Internal Medicine
DX: C15.5 Malignant neoplasm of lower third of esophagus (principal); R45.1 Restlessness and agitation; R33.9 Retention of urine, unspecified; C79.31 Secondary malignant neoplasm of brain
CPT/HCPCS: 36415; 51702; 80053; 81003; 85025; 94640; 96372; 96374; 96375; 96376; 99285; G0378; J2060; J2270; J2550; J7613